=== PATIENT | female | born 1965 | race Caucasian/White ===

== ENCOUNTER 2017-08-30 15:28 | Outpatient (CLI) | payer OTHER | END 2017-08-30 15:29 | disposition home or self-care (01) | LOC: BICMAMMO 15:28 | PROVIDERS: ATTEND Obstetrics & Gynecology | DX: Z12.31 Encounter for screening mammogram for malignant neoplasm of breast (principal) | CPT/HCPCS: 77067 ==

== ENCOUNTER 2024-07-01 07:01 | Day surgery (SDC) | payer OTHER ==
[2024-06-30 14:45] VITALS: BMI 24.2
[2024-07-01] MEDS ORDERED: fentaNYL PF 100 MCG/2 ML SYRINGE ONE ×3 (07:10→14:00)
[2024-07-01] MEDS ORDERED: Lidocaine 1% PF 5 ML VIAL ONE ×2 (07:10→12:41)
[2024-07-01] MEDS ORDERED: Ondansetron PF 4 MG/2 ML Vial ONE (07:10)
[2024-07-01] MEDS ORDERED: PROPOFOL 20 ML ONE ×2 (07:10→12:41)
[2024-07-01] MEDS ORDERED: Rocuronium Bromide 10 MG/ML (10ML VIAL) ONE (07:32)
[2024-07-01 11:36] LABS: #Basophils 0.06 10x3/uL (0.0-0.2); %Eosinophils 1.1 % (0.0-10.0); %Lymphocytes 34.8 % (21.0-51.0); %Monocytes 6.4 % (0.0-10.0); %Neutrophils 56.5 % (42.0-75.0); Hematocrit 43.1 % (36.0-47.0); Hemoglobin 14.6 g/dL (12.0-16.0); Mean Corpuscular HGB CONC 33.9 g/dL (32.0-36.0); Mean Corpuscular Volume 88.7 fL (78.0-98.0); Mean Platelet Volume 9.6 fL (7.4-10.4); Platelet Count 227 10x3/uL (130-400); RBC Distribution Width 12.5 % (11.5-14.5); Red Blood Cell (RBC) Count 4.86 mill/uL (4.20-5.40)
[2024-07-01 11:58] LABS: ALT (SGPT) 17 U/L (8-55); AST (SGOT) 21 U/L (5-34); Albumin 3.7 g/dL (3.4-4.8); Alkaline Phosphatase 64 U/L (40-110); Anion Gap 13 mmol/L (10-20); BUN (Urea Nitrogen) 10 mg/dL (9.8-20.1); Bilirubin, Total 0.4 mg/dL (0.2-1.2); Calc. Creatinine Clearance 63 mL/min (70-130); Calcium 9.2 mg/dL (7.8-10.44); Carbon Dioxide 26 mmol/L (23-31); Chloride 105 mmol/L (98-107); Estimated GFR 80; Globulin 3.5 g/dL (2.4-3.5); Glucose 97 mg/dL (80-115); Protein, Total 7.2 g/dL (5.8-8.1); Sodium 140 mmol/L (136-145)
[2024-07-01] MEDS ORDERED: Bupivacaine 0.25% HCL 30 ML VIAL ONE (12:41)
[2024-07-01] MEDS ORDERED: EPINEPHrine 1 MG/ML VIAL ONE (12:41)
[2024-07-01] MEDS ORDERED: Bacitracin Zinc Ointment 30 gm TUBE ONE (12:41)
[2024-07-01] MEDS ORDERED: cefOXitin 2 GM VIAL ONE (12:51)
[2024-07-01] MEDS ORDERED: SUGAMMADEX SODIUM 200 MG/2 ML VIAL ONE ×2 (13:28→13:37)
[2024-07-01] MEDS ORDERED: Dexamethasone 4 mg/ml Vial ONE (13:28)
[2024-07-01] MEDS ORDERED: Ketorolac Tromethamine 30 MG (1 mL) VIAL ONE (14:12)
[2024-07-01] MEDS ORDERED: fentaNYL 50 mcg/mL 1 mL Vial ONE (14:13)
[2024-07-01] MEDS ORDERED: HYDROcodone/Acetaminophen 5/325 mg Tablet ONE (14:48)
[2024-07-01] MEDS ORDERED: Promethazine HCl 25 MG/ML VIAL ONE (14:50)
== END 2024-07-01 14:22 | disposition home or self-care (01) ==
LOC: SDC 07:01
PROVIDERS: ATTEND Surgery
PROC: 06BY3ZC Excision of Hemorrhoidal Plexus, Percutaneous Approach (ICD-10-PCS; principal; 2024-07-01)
DX: K64.2 Third degree hemorrhoids (principal); K60.1 Chronic anal fissure; J30.2 Other seasonal allergic rhinitis; G47.00 Insomnia, unspecified; Z98.890 Other specified postprocedural states; Z79.899 Other long term (current) drug therapy; Z98.51 Tubal ligation status; Z90.710 Acquired absence of both cervix and uterus; Z87.59 Personal history of other complications of pregnancy, childbirth and the puerperium; Z88.2 Allergy status to sulfonamides; Z88.5 Allergy status to narcotic agent; Z91.041 Radiographic dye allergy status
CPT/HCPCS: 80053; 85025; 88304; J0171; J0665; J0694; J1100; J1885; J2405; J2550; J2704; J3010